=== PATIENT | female | born 1955 | race African-American/Black ===

== ENCOUNTER 2023-11-16 12:02 | Emergency (ER) | payer OTHER, SELFPAY ==
[2023-11-16 12:05] VITALS: BP 180/102
[2023-11-16 12:46] VITALS: BP 155/90
[2023-11-16 12:57] LABS: % Basophils 0.5 % (0-2); % Eosinophils 0.7 % (0-6); % Immature Granulocytes 0.2 % (0-0.5); % Lymphocytes 50.1 % (20.5-51.1); % Monocytes 5.5 % (1.7-9.3); Absolute Eosinophils 0.1 10^3/uL (0-0.7); Absolute Lymphocytes 4.3 10^3/uL (1.2-3.4); Absolute Monocytes 0.5 10^3/uL (0.1-0.6); Absolute Neutrophils 3.7 10^3/uL (1.4-6.5); Hematocrit 37.3 % (37.0-47.0); Mean Corp Hgb Conc. 32.2 g/dL (33.0-37.0); Mean Corpuscular Hgb 25.1 pg (27.0-31.0); Mean Platelet Volume 9.1 fL (7.4-10.4); Nucleated Red Blood Cells % 0 %; Platelet Count 309 10^3/uL (130-400); Red Blood Cell Count 4.78 10^6/uL (4.20-5.40); Red Cell Dist. Width 18.8 % (11.5-14.5); White Blood Cell Count 8.6 10^3/uL (4.8-10.8)
--- NOTE | 2023-11-16 13:06 | ED.GENMED ---
History of Present Illness
<Sandra Castaneda PA-C - Last Filed: 11/26/23 18:21>
General
Chief Complaint: Chest Pain
Source: patient
Exam Limitations: none
Time Seen by Provider: 11/16/23 12:35
Nursing documentation reviewed up to this point in time: agreed with
Travel History
Have you had any contact with someone who has COVID-19?: No
Do you have any symptoms of coronavirus? Fever > 100 degrees, chills, cough, shortness of breath, sore throat, loss of taste or smell, muscle aches, or headache?: No
History of Present Illness
History of Present Illness:
Patient is a 68 year old female with history HTN, HLD, DM presenting for evaluation of chest pain and associated left shoulder for the past 10 days. Symptoms are worse with movement. She denies any exertional component or pleuritic component. She
does report some mild shortness of breath over the past few days.
She denies any fever, chills, cough, GI symptoms, or symptoms. She was seen by her PCP who recommended evaluation in the emergency department.
Patient has no recent travel or surgical history. No history of clotting disorders.
Past History
<Sandra Castaneda PA-C - Last Filed: 11/26/23 18:21>
Past History
ED Past Medical History: HTN and NIDDM
ED Past Surgical History: Negative Cardiac
Social History
Tobacco: Non-smoker
Alcohol: None
Drug: None
Personal: Single
Living: with family
Employment: Retired
Family History
Family History: Other (Family sick with Covid)
Phy Exam
<Sandra Castaneda PA-C - Last Filed: 11/26/23 18:21>
Physical Exam
Physical Exam:
General: Well appearing and non-toxic
Vitals: Hypertensive, borderline tachycardic, otherwise VSS; afebrile
HEENT: Atraumatic, normocephalic; pupils equal round and reactive to light bilaterally, extraocular muscles intact, protecting airway
Neck: appears supple, no JVD
CV: Borderline tachycardic, regular rhythm, heart sounds normal, no evidence of cyanosis; no tenderness to anterior chest wall
Resp: Lungs clear without any rales, rhonchi, or wheezing; no accessory muscle use
Abd: Soft, nontender, non-distended
Extremities: Reproducible tenderness along medial border of scapula, significant pain with shoulder flexion and extension; left distal upper extremity neurovascularly intact
Neuro: alert and oriented, speech normal, no gross deficits
Psych: Normal affect
Skin: Intact, no rashes
Scores
<Sandra Castaneda PA-C - Last Filed: 11/26/23 18:21>
Heart Score for Chest Pain Patients
STEMI patient?: No
History: Slightly or Non-Suspicious
ECG: Normal
Age: >/= 65 years
Risk Factors: >/= 3 Risk Factors or History of CAD
Troponin: </= Normal Limit
Heart Score for Chest Pain Patients: 4
Heart Score Risk: 20.3% MACE over next 6 weeks
Course
<Sandra Castaneda PA-C - Last Filed: 11/26/23 18:21>
Orders/Labs/Results
Orders:
Orders
11/16/23 12:08
Electrocardiogram (*1) Urgent
Reason for Study: Chest Pain
EKG- Treatment ONCE
11/16/23 12:49
Complete Blood Count/With Diff Urgent
Comprehensive Metabolic Panel Urgent
Troponin I Urgent
11/16/23 12:50
D-Dimer Urgent
11/16/23 13:15
Acetaminophen [Tylenol] 650 mg PO NOW STA
CR Chest - 2 Views Urgent
Comment:
Reason For Exam: chest pain
11/16/23 14:06
Shoulder, Left 2 View CR [CR Shoulder - Left Min 2 View*] Urgent
Comment:
Reason For Exam: left shoulder pain
Abnormal Lab Results
11/16/23
12:49
MCV 78.0 L fL
(81.0-99.0)
MCH 25.1 L pg
(27.0-31.0)
MCHC 32.2 L g/dL
(33.0-37.0)
RDW 18.8 H %
(11.5-14.5)
Absolute Lymphs (auto) 4.3 H 10^3/uL
(1.2-3.4)
Chloride 110 H mmol/L
(98-107)
Glucose 226 H mg/dl
(70-99)
11/16/23 12:49
11/16/23 12:49
Vital Signs
Initial and Last Documented VS:
Initial Vital Signs
Temp Pulse Resp BP Pulse Ox
98.4 F 99 18 180/102 99
11/16/23 12:05 11/16/23 12:05 11/16/23 12:05 11/16/23 12:05 11/16/23 12:05
Last Documented Vital Signs
Temp Pulse Resp BP Pulse Ox
98.4 F 86 15 154/86 98
11/16/23 12:05 11/16/23 13:42 11/16/23 13:42 11/16/23 16:00 11/16/23 16:00
<Hal Huerta MD - Last Filed: 11/16/23 17:09>
Orders/Labs/Results
Orders:
Orders
11/16/23 12:08
Electrocardiogram (*1) Urgent
Reason for Study: Chest Pain
EKG- Treatment ONCE
11/16/23 12:49
Complete Blood Count/With Diff Urgent
Comprehensive Metabolic Panel Urgent
Troponin I Urgent
11/16/23 12:50
D-Dimer Urgent
11/16/23 13:15
Acetaminophen [Tylenol] 650 mg PO NOW STA
CR Chest - 2 Views Urgent
Comment:
Reason For Exam: chest pain
11/16/23 14:06
Shoulder, Left 2 View CR [CR Shoulder - Left Min 2 View*] Urgent
Comment:
Reason For Exam: left shoulder pain
Abnormal Lab Results
11/16/23
12:49
MCV 78.0 L fL
(81.0-99.0)
MCH 25.1 L pg
(27.0-31.0)
MCHC 32.2 L g/dL
(33.0-37.0)
RDW 18.8 H %
(11.5-14.5)
Absolute Lymphs (auto) 4.3 H 10^3/uL
(1.2-3.4)
Chloride 110 H mmol/L
(98-107)
Glucose 226 H mg/dl
(70-99)
11/16/23 12:49
11/16/23 12:49
Vital Signs
Initial and Last Documented VS:
Initial Vital Signs
Temp Pulse Resp BP Pulse Ox
98.4 F 99 18 180/102 99
11/16/23 12:05 11/16/23 12:05 11/16/23 12:05 11/16/23 12:05 11/16/23 12:05
Last Documented Vital Signs
Temp Pulse Resp BP Pulse Ox
98.4 F 86 15 154/86 98
11/16/23 12:05 11/16/23 13:42 11/16/23 13:42 11/16/23 16:00 11/16/23 16:00
<Sandra Castaneda PA-C - Last Filed: 11/26/23 18:21>
MDM/Problems Addressed
Differential Diagnosis Includes:
muscular strain, unstable angina, doubt PE or pneumothorax, ACS, pneumonia; tendonitis, cervical radiculopathy
MDM/Problems Addressed:
Patient is a 68 year old female with history hypertension, hyperlipidemia, diabetes presenting for evaluation of intermitted chest pain and left shoulder pain for the past two weeks. Some mild shortness of breath. Pain is made worse with movement of
shoulder. No fevers, cough, GI symptoms, She is hypertensive and borderline tachycardic but otherwise vital signs stable. Physical exam as documented above. EKG shows no STEMI. Clinical suspicion is highest for MSK cause of shoulder pain. Given risk
factors and patient concern - will perform cardiac workup to r/u serious cardiac pathology. Will check basic labs, troponin, d-dimer, chest xray.. Will check shoulder xray.
CBC without any clinically significant abnormalities. CMP shows hyperglycemia - otherwise no abnormalities. D-dimer negative. Troponin negative - given symptoms have been present for 2 weeks - this is sufficient to rule out acute MN.
Chest xray and shoulder xray show no acute abnormalities. Shoulder xray shows some degenerative changes at AC joint.
Workup negative. Hypertension resolved without intervention. No indication for admission - will discharge with return precautions, NSAIDS, PCP and ortho follow-up if symptoms persist. Patient comfortable with plan. All questions answered.
Chronic conditions affecting care:
Hypertension, Hyperlipidemia, Diabetes
Acute Exacerbation and/or Progression of Chronic Illness:
Acutely hypertensive, hyperglycemic
<Sandra Castaneda PA-C - Last Filed: 11/26/23 18:21>
*Radiology
Radiology exam reviewed: preliminary read by ED provider and radiology read reviewed
*Pulse Oximetry
Patient hypoxic: no
*EKG
Interpreted by ED Provider?: Yes
EKG Intrepretation Date: 11/17/23
Interpretation: normal
Comparison EKG: no comparison EKG present
Heart Rate: 92
Rate: normal
Rhythm: sinus
Arpin: normal axis
Interval: normal interval
QRS Pattern: normal QRS
Ischemia: no ischemia
*[employer] Operator Interpretation
Rate: tachycardiac
Interpretation: normal
Heart Rate: 101
Rhythm: sinus
*Critical Care Note
Total Time (30-74mins, 75-104mins- exclusive of procedures): Not Applicable
ED Attending Note
<Sandra Castaneda PA-C - Last Filed: 11/26/23 18:21>
-
Portions of this chart may have been created with voice recognition software.� Occasional wrong word or��sound alike� substitutions may have occurred due to the inherent limitations of voice recognition software.
<Hal Huerta MD - Last Filed: 11/16/23 17:09>
ED Attending Note
Patient seen and examined by attending physician: Yes
ED Attending Note:
HPI: 68-year-old female with past medical history of hypertension, hyperlipidemia, diabetes presents to the emergency room for evaluation of shoulder pain radiating to the left neck and chest as well as the scapula. Symptoms have been ongoing for
the past 2 weeks. They are worse with movement, no relieving factors noted. She denies any associated shortness of breath. No nausea, vomiting, diaphoresis. She denies any exertional component but rather symptoms worse when she moves her
shoulder around. She was concerned given radiation to the chest, saw her primary doctor who recommended she come to the emergency room to be assessed.
ROS: Positive for shoulder pain, neck pain, chest pain, back pain; negative for shortness of breath, cough, fevers, chills, leg pain or swelling
Physical exam:
General: Awake, alert, oriented x3; no acute distress
Head: Normocephalic, atraumatic
Eyes: Conjunctiva normal, sclera anicteric
Throat: Airway intact, handling secretions
Neck: Trachea midline, supple without meningismus
Lungs: Clear to auscultation bilaterally, no wheezing, rales, rhonchi
Heart: Regular rate and rhythm, no murmurs, gallops, or rubs
Abd: Soft, non distended, nontender
Neuro: Cranial nerves grossly intact, speech fluid
Skin: no rash
Extremities: Patient has reproducible tenderness along the medial margin of the left scapula as well as along the anterior humeral head; she has significant pain with flexion and internal rotation of the left shoulder; she has a good strong left
radial pulse, motor and sensory function intact in the distal left upper extremity
Differential diagnosis: Cervical radiculopathy, tendinitis, rotator cuff tendinopathy, arthritis, shoulder subluxation/dislocation, fracture; very low clinical suspicion for emergent cardiac pathology including ACS or for PE or acute aortic syndrome
Medical decision makin-year-old female presents for evaluation of left shoulder pain rating to the neck, scapula, chest constant x 2 weeks. She is hypertensive although blood pressure improved by my assessment. Physical exam as above. EKG
shows no STEMI. Plan to place an IV check labs including a CBC and a CMP, troponin, D-dimer. Check a chest x-ray and shoulder x-ray. Monitor closely reassess after the above.
Labs reviewed: CBC unremarkable, CMP shows hyperglycemia but otherwise unremarkable. Troponin negative x 1 and with constant symptoms for 2 weeks this is sufficient to rule out acute MN. D-dimer negative. Shoulder x-ray shows no acute fracture or
dislocation, chest x-ray no acute disease. Suspect symptoms likely musculoskeletal advised to take NSAIDs will discharge to follow-up with her primary care physician. With radiation to the chest we did provide cardiology referral as well as she
does have cardiac risk factors although symptoms do not sound anginal.
Chronic conditions affecting care: Hypertension, hyperlipidemia, diabetes�higher risk for cardiac disease
Acute exacerbation or progression of chronic illness: Acutely hypertensive improved without intervention
History source: Patient
Data reviewed: N/A
Medications/testing considered: N/A
Social determinants of health: N/A
Discussion with other providers: N/A
Discharge Plan
Departure
Patient Disposition: Home (Routine Discharge)
Date of Disposition: 11/16/23
Time of Disposition: 16:20
Patient with high blood pressure during this ER visit?: Yes
Condition: Good
Covid-19: Not Applicable
Discharge Problem:
Chest pain, Left shoulder pain
Instructions: Chest Pain (DC), Chest Pain CBC Follow Up
Prescriptions:
No Action
atorvastatin 40 MG tablet
40 mg PO HS
omeprazole 20 MG capsule,delayed release(DR/EC)
20 mg PO HS
ergocalciferol (vitamin D2) 50,000 UNITS capsule
50,000 units PO TU@2200
empagliflozin [Jardiance] 25 MG tablet
25 mg PO HS
dulaglutide [Trulicity] 0.75 MG/0.5 ML pen injector
0.75 mg SQ TU@2200
cyclobenzaprine 10 MG tablet
5 mg PO TID PRN (Reason: Spasms) Qty: 15 0RF
diclofenac sodium 100 GRAM/TUBE gel
1 g topical QIDPRN PRN (Reason: BACK/SHOULDER PAIN) Qty: 1 0RF
acetaminophen 325 MG tablet
650 mg PO Q4HPRN PRN (Reason: mild pain/DAVIS/temp> 100.4F) 0RF
benzonatate 100 MG capsule
200 mg PO TIDPRN PRN (Reason: cough) 0RF
Referrals:
Eris Camara MD [Family Provider] - Follow up in 1 week
Activity Restrictions/Additional Instructions:
-Return to the emergency department with severe chest pain, shortness of breath, chest pain associated with nausea, vomiting, diaphoresis, numbness/tingling in left arm, high fevers, dizziness/lightheadedness, worsening in current symptoms, or any
other concerns
-You can take Motrin as needed for discomfort
-As discussed you should follow-up with cardiology and primary care for further evaluation/management. You should receive a call from a cardiology office for appointment in the next 48 hours.
-As discussed today - your blood glucose levels were elevated. You should continue to take your medications as prescribed and follow-up with primary care for further management of your diabetes.
Interventions
Interventions:
*Risk Screen - Suicide Last Done: 11/16/23 12:05
*General Assessment Last Done: 11/16/23 12:05
*Neglect/Abuse Screening Last Done: 11/16/23 12:05
ED- Fall Risk Assessment Last Done: 11/16/23 12:46
*ED COVID-19 Vaccine History Last Done: 11/16/23 12:05
*Nursing Disposition Last Done: 11/16/23 16:29
ED- Cardiac Assessment Last Done: 11/16/23 12:46
ED-Musculoskeletal Assessment Last Done: 11/16/23 12:46
Discharge Date and Time
Discharge Date/Time: 11/16/23 16:31
[2023-11-16 13:15] LABS: ALT (SGPT) 24 U/L (0-35); AST (SGOT) 22 U/L (14-36); Albumin 4.2 g/dl (3.5-5.0); Alkaline Phosphatase 108 U/L (38-126); Blood Urea Nitrogen 14 mg/dl (7-17); Calcium 9.1 mg/dl (8.4-10.2); Carbon Dioxide 22 mmol/L (22-30); Chloride 110 mmol/L (98-107); Glucose 226 mg/dl (70-99); Potassium 3.9 mmol/L (3.5-5.1); Sodium 139 mmol/L (135-145); Total Bilirubin 0.5 mg/dl (0.2-1.3); Total Protein 7.3 g/dl (6.3-8.2); eGFR > 60.00
[2023-11-16 13:20] LABS: Troponin I < 0.012 ng/ml
[2023-11-16] MEDS: TYLENOL 650 MG PO (13:21)
[2023-11-16 13:22] VITALS: BP 150/80
[2023-11-16 13:49] LABS: D-Dimer < 0.27 ug/mlFEU (0.00-0.50)
[2023-11-16 15:07] VITALS: BP 138/90
[2023-11-16 16:00] VITALS: BP 154/86
== END 2023-11-16 16:31 | disposition home or self-care (01) ==
LOC: EMR 12:02
PROVIDERS: Emergency Medicine; Physician Assistant; EMERGENCY PHYSICIAN Emergency Medicine; FAMILY PHYSICIAN Family Medicine
DX: R07.89 Other chest pain (principal); M25.512 Pain in left shoulder; I10 Essential (primary) hypertension; E78.00 Pure hypercholesterolemia, unspecified; E11.9 Type 2 diabetes mellitus without complications
CPT/HCPCS: 99283; 71046; 73030; 80053; 84484; 85025; 85379; 93005